=== PATIENT | female | born 1995 | race Caucasian/White ===

== ENCOUNTER 2020-12-26 09:21 | Emergency (ER) | payer OTHER ==
[~2020-12-26] VITALS: Ht 167.6 cm; Wt 73.0 kg
[2020-12-26] MEDS ORDERED: PRENATABS FA T1 EACH (09:33)
[2020-12-26] MEDS ORDERED: BENADRYL25 MG PO (15:36)
== END 2020-12-26 16:01 | disposition home or self-care (01) ==
LOC: ER 09:21
DX: O26.892 Other specified pregnancy related conditions, second trimester (principal); R21 Rash and other nonspecific skin eruption; Z34.02 Encounter for supervision of normal first pregnancy, second trimester; Z11.52 Encounter for screening for COVID-19

== ENCOUNTER 2021-02-04 18:19 | Emergency (ER) | payer OTHER ==
[~2021-02-04] VITALS: Ht 167.6 cm; Wt 76.7 kg
[~2021-02-04 18:19] MED LIST: BENADRYL25 MG PO; PRENATABS FA T1 EACH
== END 2021-02-04 21:15 | disposition home or self-care (01) ==
LOC: ER 18:19
DX: B34.9 Viral infection, unspecified (principal); Z03.818 Encounter for observation for suspected exposure to other biological agents ruled out; Z3A.19 19 weeks gestation of pregnancy

== ENCOUNTER 2021-03-08 13:20 | Outpatient (CLI) | payer OTHER | END 2021-03-08 14:25 | disposition home or self-care (01) | LOC: PRENATAL 13:20 | PROVIDERS: ATTEND Obstetrics & Gynecology Maternal & Fetal Medicine | DX: O35.0XX1 Maternal care for (suspected) central nervous system malformation in fetus, fetus 1 (principal); O35.3XX1 Maternal care for (suspected) damage to fetus from viral disease in mother, fetus 1; O98.512 Other viral diseases complicating pregnancy, second trimester; Z36.89 Encounter for other specified antenatal screening; Z3A.25 25 weeks gestation of pregnancy ==

== ENCOUNTER 2021-06-05 18:45 | Outpatient (CLI) | payer OTHER | END 2021-06-06 16:16 | disposition home or self-care (01) | LOC: OBS/DEL 18:45 | PROVIDERS: ATTEND Obstetrics & Gynecology | DX: O26.893 Other specified pregnancy related conditions, third trimester (principal); Z04.1 Encounter for examination and observation following transport accident; Z3A.37 37 weeks gestation of pregnancy; V89.2XXA Person injured in unspecified motor-vehicle accident, traffic, initial encounter; Y93.89 Activity, other specified; Y92.488 Other paved roadways as the place of occurrence of the external cause; Y99.8 Other external cause status ==

== ENCOUNTER 2021-06-20 14:31 | Inpatient (IN) | payer OTHER ==
[~2021-06-20] VITALS: Ht 167.6 cm; Wt 83.9 kg
== END 2021-06-22 13:12 | disposition home or self-care (01) | DRG 807 ==
LOC: OB/GYN 14:31 → LDR 14:31 → OB/GYN 18:08
PROVIDERS: ADMIT Obstetrics & Gynecology; ATTEND Obstetrics & Gynecology
PROC: 10E0XZZ Delivery of Products of Conception, External Approach (ICD-10-PCS; principal; 2021-06-20)
PROC: 0HQ9XZZ Repair Perineum Skin, External Approach (ICD-10-PCS; 2021-06-20)
PROC: 4A1HXFZ Monitoring of Products of Conception, Cardiac Rhythm, External Approach (ICD-10-PCS; 2021-06-20)
DX: O70.0 First degree perineal laceration during delivery (principal); Z37.0 Single live birth; Z3A.38 38 weeks gestation of pregnancy